=== PATIENT | male | born 1935 | race American Indian/Alaskan Native ===

== ENCOUNTER 2018-08-23 09:27 | Outpatient (CLI) | payer MEDICARE ==
[2018-08-23 10:58] LABS: Blood Urea Nitrogen 21 mg/dL (9-20)
--- NOTE | 2018-08-23 13:43 | Cat Scan Report ---
PROCEDURE: CT ANGIO ABD/FEMORAL ABD AORTA TECHNIQUE: CT angiography of the abdomen and pelvis performed. CTA runoff of lower extremities also obtained. IV contrast was administered. Patient was scanned in the left decubitus position. Axial ana ges and coronal and sagittal reformatted images were obtained. HISTORY: Atherosclerosis of [place] arteries of extremities with gangrene COMPARISON: None FINDINGS: Imaging/evaluation very limited due to patient condition. The patient is partially contracted and pos itioned left lateral decubitus. There is a small right pleural effusion. There is some atelectasis in the right lower lobe. There is cholelithiasis. Low-density lesions in the liver are probably cysts. The spleen, pancreas, adrenal glands and kidneys demonstrate no significant abnormality. There are aortoiliac atherosclerotic calcifications. There is no abdominal aortic aneurysm. 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 There is no evidence for intestinal obstruction. There is a small to moderate ventral hernia containing a portion of the transverse colon. There is no associated obstruction. There is prominent stool in the distal colon. Correlate for constipation. Bladder wall is mildly thickened and ill-defined. I cannot exclude cystitis. 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 Runoff images of lower extremity are very limited due to patient's condition. There is flow on the ri ght into the deep femoral artery although no flow is seen within the superficial femoral artery. Ther e is no arterial flow is seen in the distal thigh or calf. I cannot exclude arterial occlusion althou gh this may reflect bolus timing. On the left evaluation is very limited. There are atherosclerotic calcifications. There is irregular stenosis of the proximal superficial femoral artery. There is no significant flow seen within the dis antionette aspect of the superficial femoral artery. There is no significant flow in left calf. I cannot exc lude vascular occlusion of this may reflect bolus timing. IMPRESSION: Limited study due to patient condition. Grossly there is very little flow to either lower extremity. The SFA on the right is likely occluded. There is flow within the right deep femoral artery. On the l eft there is diminished flow within the mid to distal left SFA which could be occluded as well. No significant flow is seen within either calf although this may reflect bolus timing. Cholelithiasis. Small right pleural effusion. Cholelithiasis. Small to moderate ventral hernia containing transverse colon but not causing obstruction. Prominent stool distally. Correlate for constipation. This document is electronically signed by Danae Gonsalez MD., Aug 23 2018 01:41:24 PM ET
== END 2018-08-23 09:28 | disposition home or self-care (01) ==
LOC: CT 09:27
PROVIDERS: ATTEND Radiology Diagnostic Radiology
DX: K80.20 Calculus of gallbladder without cholecystitis without obstruction (principal); J90 Pleural effusion, not elsewhere classified; K43.9 Ventral hernia without obstruction or gangrene
CPT/HCPCS: 36415; 75635; 82565; 84520; Q9967